=== PATIENT | male | born 1985 | race Caucasian/White ===

== ENCOUNTER 2017-10-27 13:20 | Emergency (ER) | payer OTHER ==
[~2017-10-27] VITALS: Ht 182.9 cm; Wt 112.0 kg
[~2017-10-27 13:20] MED LIST: PROT40TA PO; Z.0.NO CURRENT MEDS
[2017-10-27 13:24] VITALS: BP 136/77; PULSE 55; RESP 16; TEMP 98.1; O2SAT 99
[2017-10-27] MEDS ORDERED: LIDOCAINE 1%/EPINEPHrine 1:100,000 SOLN 30 ML VIAL ONE (14:09)
--- NOTE | 2017-10-27 14:14 | PD ---
HPI Chief Complaint: Laceration/Skin Injury Time Seen by Provider: 13:52 Travel History International Travel<30 days: No Contact w/Intl Traveler<30days: No Traveled to known affect area: No History of Present Illness HPI 32-year-old male presents to the emergency room for evaluation of laceration to the left forearm that occurred just prior to arrival. Patient was using a razor blade to cut linoleum and slipped and stabbed his forearm. States his wound immediately started shooting blood across the room. He applied pressure and then went to an urgent care center where they referred him here. He believes his tetanus was within 5 years. No chronic medical conditions or daily medications. He is not on blood thinners. [facility] Past Medical History Medical History: Denies Significant Hx Diminished Hearing: No Tetanus Vaccination: < 5 Years Past Surgical History Oral Surgery: Yes (JAW) Social History Alcohol Use: No Tobacco Use: No Substance Use: No Allergies-Medications (Allergen,Severity, Reaction): Coded Allergies: No Known Allergies (Verified Adverse Reaction, Unknown, 10/27/17) Reported Meds & Prescriptions Reported Meds & Active Scripts Active Keflex (Cephalexin) 500 Mg Capsule 500 Mg PO Q6H 7 Days Review of Systems Except as stated in HPI: all other systems reviewed are Neg Physical Exam Narrative GENERAL: Well-nourished, well-developed male in no acute distress. Afebrile. Ambulatory. SKIN: Focused skin assessment warm/dry. 1.5 cm gaping wound to the left forearm that is nonbleeding. HEAD: Normocephalic. EYES: No scleral icterus. No injection or drainage. NECK: Supple, trachea midline. No JVD or lymphadenopathy. CARDIOVASCULAR: Regular rate and rhythm without murmurs, gallops, or rubs. RESPIRATORY: Breath sounds equal bilaterally. No accessory muscle use. EXTREMITY: Left hand Nontender. Full range of motion in all joints. No joint swelling/injury. Less than 2 second capillary refill distally. Bounding 2+ dorsalis pedis pulse. Negative Arthur's test. Data Data Last Documented VS Vital Signs Date Time Temp Pulse Resp B/P (MAP) Pulse Ox O2 Delivery O2 Flow Rate FiO2 10/27/17 13:24 98.1 55 16 136/77 (96) 99 Orders Orders Lidocai-Epi 1%-1:100,000 Inj (Xylocaine- (10/27/17 14:15) Lidocai-Epi 1%-1:100,000 Inj (Xylocaine- (10/27/17 14:09) Ed Discharge Order (10/27/17 14:54) [facility] Medical Decision Making Medical Screen Exam Complete: Yes Emergency Medical Condition: Yes Medical Record Reviewed: Yes Differential Diagnosis Laceration, foreign body, contusion Narrative Course 32-year-old male presents to the emergency room for evaluation of a laceration of his left forearm. Patient accidentally stabbed himself with a razor blade just prior to arrival. He was concerned that the amount of blood loss. Physical exam reveals a 1.5 cm laceration to the left wrist about 6 cm proximal of the wrist joint. It is bleeding a moderate amount but not shooting or squirting blood. Wound was thoroughly explored. There is a small blood clot superficially. Patient may have lacerated a superficial vein but I see no signs of significant neurovascular or deep injury. He has full range motion of the hand. Less than 2 second capillary refill distally. Strength 5/5 in right hand. 2+ radial pulse. Negative Arthur's test. Compartment soft at this time. Laceration was thoroughly cleansed and repaired, see procedure note for details. Patient discharged with prescription for Keflex given that the wound and told to follow-up with her primary care physician or return for worsening symptoms. He was given signs and symptoms of compartment syndrome. He understands and agrees to plan. Procedures Procedure Narrative LACERATION LOCATION: Left volar forearm LENGTH:1.5 cm NUMBER OF STITCHES/PATRICK: 4 simple interrupted REPAIR: The area of the laceration was prepped with Betadine and sterilely draped. The laceration was infiltrated with 1% lidocaine with epinephrine. The wound was copiously irrigated and explored without evidence of foreign body , tendon injury or neurovascular injury. The wound was closed using 5-0 Prolene. This was a single layer repair. A sterile dressing was applied. The patient was advised to keep the dressing clean and dry. Patient tolerated the procedure well. Diagnosis Primary Impression: Laceration of left forearm Qualified Codes: S51.812A - Laceration without foreign body of left forearm, initial encounter Referrals: Primary Care Physician Additional Instructions: Rest and drink fluids. Keep wound clean and dry. Apply triple antibiotic ointment daily. Return in 7 days to have sutures removed. Follow-up with a primary care physician. Return to the emergency room for worsening symptoms. Scripts Cephalexin (Keflex) 500 Mg Capsule 500 MG PO Q6H for Infection for 7 Days, #28 CAP 0 Refills Prov: Kulwinder Rodriguez MD 10/27/17 Disposition: 01 DISCHARGE HOME Condition: Stable Analilia Mtz Oct 27, 2017 14:14
[2017-10-27] MEDS ORDERED: LIDOCAINE 1%/EPINEPHrine 1:100,000 SOLN 20 ML VIAL INFIL ONE (14:15)
[2017-10-27] MEDS ORDERED: CEPH-460 PO (15:02)
== END 2017-10-27 15:02 | disposition home or self-care (01) ==
LOC: PHED 13:20 → PHEFT 15:02
DX: S51.812A Laceration without foreign body of left forearm, initial encounter (principal); W26.8XXA Contact with other sharp object(s), not elsewhere classified, initial encounter; Y93.89 Activity, other specified
CPT/HCPCS: 12001